=== PATIENT | female | born 1995 | race Caucasian/White ===

== ENCOUNTER 2017-02-20 17:40 | Emergency (ER) | payer OTHER ==
--- NOTE | ~2017-02-20 | CR63 ---
[facility] A Service of [facility] RADIOLOGY TEXT RESULTS PATIENT: HUI BRAUN LOCATION: SED : [birth year] UNIT #: [id number] AGE: [address]: Michelle Osuna PAC SEX: F ORDER DR: [id number] [place] [id number] E MR#: [id number] Acc #: [id number] NAME: HUI BRAUN : 1995 SEX: F STUDY DATE/TIME: 02/20/2017 18:55 UNIT: SED ROOM: STUDY DESCRIPTION: CR Chest 2 View Attending Physician: Michelle Osuna Pa-C Ordering Physician: Michelle Osuna Pa-C Primary Care Physician: Nicholas Gallo [facility] MEDICAL IMAGING REPORT This report is preliminary unless electronic signature is present. EXAM Chest x-ray 02/20 INDICATIONS Chest pressure for the last 2 days. COMPARISON: None. FINDINGS PA and lateral examination of the chest upright shows a good expansion of the parenchyma with a normal distribution of the pulmonary vascularity. There is no indication of congestion, effusion, infiltrate, tumor, or nodular density. The pleural reflections and diaphragmatic contours are normal. The cardiac silhouette and mediastinal anatomy is within normal limits. IMPRESSION Normal chest. Dictated by... Deric Sethi Jr., M.D. THIS IS AN ELECTRONICALLY VERIFIED REPORT Deric Sethi Jr., M.D. at 02/21/2017 10:04 AM BRANDONK/wan TD: 02/21/2017 07:56 JOB #: [id number] [facility] A Service [facility] RADIOLOGY TEXT RESULTS PATIENT: HUI BRAUN LOCATION: SED : [birth year] UNIT #: [id number] AGE: [address]: Michelle Osuna PAC SEX: F ORDER DR: MEDICAL IMAGING REPORT Page 1 of 1
[2017-02-20] MEDS ORDERED: NO MEDICATIONS (18:10)
== END 2017-02-20 19:50 | disposition home or self-care (01) ==
LOC: SED 17:40
DX: M94.0 Chondrocostal junction syndrome [Tietze] (principal); F32.9 Major depressive disorder, single episode, unspecified; Z86.19 Personal history of other infectious and parasitic diseases
CPT/HCPCS: 71020; 99283